=== PATIENT | female | born 1975 | race Caucasian/White ===

== ENCOUNTER 2023-11-10 10:14 | Day surgery (SDC) | payer OTHER ==
[~2023-11-10] VITALS: Ht 182.9 cm; Wt 139.8 kg
[2023-11-10] MEDS ORDERED: NOVOLOG FL100 UNIT/2 SC (11:51)
[2023-11-10] MEDS ORDERED: METF500 PO (11:52)
[2023-11-10 13:11] VITALS: BP 120/65
== END 2023-11-10 13:13 | disposition home or self-care (01) ==
LOC: ORSCSDS 10:14
PROVIDERS: Internal Medicine Gastroenterology
PROC: 0DBM8ZX Excision of Descending Colon, Via Natural or Artificial Opening Endoscopic, Diagnostic (ICD-10-PCS; principal; 2023-11-10 11:45)
DX: Z12.11 Encounter for screening for malignant neoplasm of colon (principal); Z80.0 Family history of malignant neoplasm of digestive organs; D12.4 Benign neoplasm of descending colon; E11.9 Type 2 diabetes mellitus without complications; Z96.41 Presence of insulin pump (external) (internal); F90.9 Attention-deficit hyperactivity disorder, unspecified type; G62.9 Polyneuropathy, unspecified; Z68.41 Body mass index [BMI] 40.0-44.9, adult; Z79.4 Long term (current) use of insulin; Z79.84 Long term (current) use of oral hypoglycemic drugs; Z79.899 Other long term (current) drug therapy
CPT/HCPCS: 82947; 88305; J2704; J7120

== ENCOUNTER → 2025-08-10 | Outpatient (CLI) | payer OTHER ==
[~2025-08-10] MED LIST: ACET500 PO; IBUP800 PO; LISI5 PO; META800 PO; METF500 PO; MIRALAX17 GM PO; NOVOLOG FL100 UNIT/2 SC; ONDA4ODT MM; OXYC5 PO; ROSUVASTATIN CAL5 MG PO; VALA500 PO; VIT D3-VIT K21 EACH PO
[2025-08-10 15:01] LABS: Candida Group, PCR NOT DETECTED (NOT DETECT); Candida glabrata-krusei, PCR NOT DETECTED (NOT DETECT)
[2025-08-10 15:11] LABS: Bacterial Vaginosis PCR Positive (NEGATIVE)
== END | disposition home or self-care (01) ==
LOC: LAB 13:04 → LAB SHORT 13:04
PROVIDERS: Obstetrics & Gynecology
DX: N89.8 Other specified noninflammatory disorders of vagina (principal)
CPT/HCPCS: 81515